=== PATIENT | female | born 1935 | race Two or more races ===

== ENCOUNTER 2021-09-03 20:44 | Emergency (ER) | payer OTHER ==
[~2021-09-03] VITALS: Ht 157.5 cm; Wt 59.0 kg
[2021-09-03] MEDS ORDERED: IOHEXOL 350 MG/ML 100ML IJ ONE (21:01)
[2021-09-03] MEDS ORDERED: HYDROcodone-ACET 5/325MG TAB PO ONE (22:30)
[2021-09-04 01:36] LABS: Albumin 3.3 g/dL (3.4-5.0); BUN/Creatinine Ratio 30.8; Calcium 8.3 mg/dL (8.5-10.1); Potassium 4.1 mmol/L (3.5-5.1)
[2021-09-04 01:39] LABS: Bilirubin, Total 0.2 mg/dL (0.2-1.0); Total Protein 6.3 g/dL (6.4-8.2)
[2021-09-04] MEDS ORDERED: LORazepam 0.5 MG TAB PO ONE (02:15)
[2021-09-04 07:00] VITALS: BP 149/62
== END 2021-09-04 08:58 | disposition home or self-care (01) ==
LOC: ER 20:44
DX: M06.9 Rheumatoid arthritis, unspecified (principal); Z96.642 Presence of left artificial hip joint
CPT/HCPCS: 36415; 72192; 73706; 80053; 93970; 99284; Q9967

== ENCOUNTER 2023-12-28 21:19 | Inpatient (IN) | payer OTHER ==
[~2023-12-28] VITALS: Ht 160 cm; Wt 56.4 kg
--- NOTE | 2023-12-28 21:42 | ED.PDOC ---
Musculoskeletal HPI Comments 88 year old female came to ER due to bilateral feet pain. Patient has history of arthritis and neuropathy. States for the past few days she has been having bilateral feet swelling and redness. Noted on and off fever. Patient denies ever being diagnosed with diabetes. Chief Complaint: Lower Extremity Time Seen by MD: 21:42 Reviewed Notes: Nurses Notes Allergies: Coded Allergies: Naproxen (Verified Allergy, Unknown, 09/03/21) Uncoded Allergies: PCN (Allergy, Unknown, 09/03/21) Information Source: Patient Mode of Arrival: Wheelchair Location: Bilateral Extremity Location: Foot Timing: Days Prehospital treatment: None Severity: Moderate Able to Move Extremity: Yes Bear Weight: Limited Pain: Moderate Hand Dominance: Right Mechanism: Spontaneous Circumstances: Spontaneous Onset of Symptoms: Spontaneous Symptoms: Swelling, Pain Associated signs and symptoms: Foot pain Past Medical History PAST MEDICAL HISTORY: Arthritis, Depression Past Medical History (Other): Neuropathy Surgical History: Denies all surgeries HARDWARE SALES ASSISTANT History: Denies all HARDWARE SALES ASSISTANT Hx Family History Family History: Reviewed,noncontributory to illness, No family hx of Cancer Social History Smoker: Non-Smoker Alcohol: Occasionally Drugs: Denies Drug Use Lives In: Home Constitutional: denies: chills, diaphoresis, fatigue, fever, malaise, sweats, weakness, others EENTM: denies: blurred vision, double vision, ear bleeding, ear discharge, ear drainage, ear pain, ear ringing, eye pain, eye redness, hearing loss, mouth pain, mouth swelling, nasal discharge, nose bleeding, nose congestion, nose pain, photophobia, tearing, throat pain, throat swelling, voice changes, others Respiratory: denies: cough, hemoptysis, orthopnea, SOB at rest, shortness of breath, SOB with excertion, stridor, wheezing, others Cardiovascular: denies: chest pain, dizzy spells, diaphoresis, Dyspnea on ex ertion, edema, irregular heart beat, left arm pain, lightheadedness, palpitations, PND, syncope, others Gastrointestinal: denies: abdomen distended, abdominal pain, blood streaked bowels, constipated, diarrhea, dysphagia, difficulty swallowing, hematemesis, melena, nausea, poor appetite, poor fluid intake, rectal bleeding, rectal pain, vomiting, others Genitourinary: denies: abnormal vagina bleeding, burning, dyspareunia, dysuria, flank pain, frequency, hematuria, incontinence, pain, , vagina discharge, urgency, others Neurological: denies: dizziness, fainting, headache, left sided numbness, left sided weakness, numbness, paresthesia, pre-existing deficit, right sided numbness, right sided weakness, seizure, speech problems, tingling, tremors, weakness, others Musculoskeletal: reports: others (bilateral redness/ swelling feet); denies: back pain, gout, joint pain, joint swelling, muscle pain, muscle stiffness, neck pain Integumetry: denies: bruises, change in color, change in hair/nails, dryness, l aceration, lesions, lumps, rash, wounds, others Allergic/Immunocompromised: denies: Difficulty Healing, Frequent Infections, Hives, Itching, others Hematologic/Lymphatic: denies: anemia, blood clots, easy bleeding, easy bruising, swollen glands, others Endocrine: denies: excessive hunger, excessive sweating, excessive thirst, excessive urination, flushing, intolerance to cold, intolerance to heat, unexplained weight gain, unexplained weight loss, others Psychiatric: denies: anxiety, bipolar disorder, depression, hopeless, panic disorder, schizophrenia, sleepless, suicidal, others Physical Exam General Appearance: No Apparent Distress, Normal HEENT: Normal ENT Inspection, Pharynx Normal, TMs Normal Neck: Full Range of Motion, Non-Tender, Normal, Normal Inspection Respiratory: Chest Non-Tender, Lungs Clear, No Accessory Muscle Use, No Respiratory Distress, Normal Breath Sounds Cardiovascular: No Edema, No JVD, No Murmur, No Gallop, Normal Peripheral Pulses, Regular Rate/Rhythm Breast Exam: Deferred Gastrointestinal: No Organomegaly, Non Tender, No Pulsatile Mass, Normal Bowel Sounds, Soft Genitalia: Deferred Pelvic: Deferred Rectal: Deferred Extremities: No calf tenderness, Normal capillary refill, Normal range of motion, Non-tender, No pedal edema, Swelling (Redness bilateral feet) Musculoskeletal : Apperance: Normal Neurologic: Alert, public health nurse II-XII nml as Tested, No Motor Deficits, Normal Affect, Normal Mood, No Sensory Deficits Cerebellar Function: Normal Reflexes: Normal Skin: Dry, Normal Color, Warm Lymphatic: No Adenopathy Was a procedure done? Was a procedure done?: No Differential Diagnosis EXT Differential Diagnosis: Cellulitis, CHF, Septic, Arthritis X-Ray, Labs, Meds, VS Vital Signs Date Time Temp Pulse Resp B/P (MAP) Pulse Ox O2 Delivery O2 Flow Rate FiO2 12/28/23 21:19 98.1 112 16 149/73 (98) 95 Lab Test 12/28/23 21:45 Range/Units White Blood Count 14.0 H 4.4-10.8 10^3/uL Red Blood Count 4.13 4.0-5.20 10^6/uL Hemoglobin 11.2 L 12.2-16.2 g/dL Hematocrit 34.4 L 36.0-46.0 % Mean Corpuscular Volume 83.2 80.0-100.0 fL Mean Corpuscular Hemoglobin 27.1 L 28.0-32.0 pg Mean Corpuscular Hemoglobin Concent 32.5 32.0-36.0 g/dL Red Cell Distribution Width 16.5 H 11.8-14.3 % Platelet Count 276 140-450 10^3/uL Mean Platelet Volume 9.7 6.9-10.8 fL Neutrophils (%) (Auto) 82.7 H 37.0-80.0 % Lymphocytes (%) (Auto) 10.5 10.0-50.0 % Monocytes (%) (Auto) 5.5 0.0-12.0 % Eosinophils (%) (Auto) 0.8 0.0-7.0 % Basophils (%) (Auto) 0.5 0.0-2.0 % Neutrophils # (Auto) 11.6 H 1.6-8.6 10 ^3/uL Lymphocytes # (Auto) 1.5 0.4-5.4 10 ^3/uL Monocytes # (Auto) 0.8 0-1.3 10 ^3/uL Eosinophils # (Auto) 0.1 0-0.8 10 ^3/uL Basophils # (Auto) 0.1 0-0.2 10 ^3/uL Nucleated Red Blood Cells 0.0 % Sodium Level 141 136-145 mmol/L Potassium Level 3.2 L 3.5-5.1 mmol/L Chloride Level 110 H 98-107 mmol/L Carbon Dioxide Level 23 20-31 mmol/L Anion Gap 8 5-15 Blood Urea Nitrogen 30 H 9-23 mg/dL Creatinine 0.99 0.550-1.02 mg/dL Glomerular Filtration Rate Calc 56 >90 mL/min BUN/Creatinine Ratio 30.3 H 10.0-20.0 Serum Glucose 90 74-106 mg/dL Calcium Level 9.2 8.7-10.4 mg/dL Troponin I High Sensitivity 8 </=34 ng/L B-Type Natriuretic Peptide 43.33 0-100 pg/mL Current Medications Medications (Trade) Dose Ordered Sig/Kirsten Route Start Time Stop Time Status Last Admin Lorazepam (Ativan Tablet) 0.5 mg ONCE ONCE PO 12/28/23 23:00 12/28/23 23:02 DC 12/28/23 23:24 Vancomycin HCl 200 ml @ 200 mls/hr ONCE ONCE IV 12/28/23 23:00 12/28/23 23:59 12/28/23 23:23 Time of 1ST Reevaluation: 21:38 Reevaluation 1ST: Unchanged Patient Education/Counseling: Diagnosis, Treatment Family Education/Counseling: No Family Present Departure 1 Departure Time of Disposition: 23:59 (Patient has signs of bilateral lower extremity cellulitis. We will treat with vancomycin. Given the extent of the cellulitis we will admit patient for further workup) Impression: Primary Impression: Lower extremity cellulitis Qualified Codes: L03.119 - Cellulitis of unspecified part of limb Additional Impression: Rheumatoid arthritis Qualified Codes: M06.9 - Rheumatoid arthritis, unspecified Disposition: ADMITTED INPATIENT Admit to: Med Surg Condition: Serious Critical Care Note Critical Care Time?: No Stability Stability form required: No Heart Score Heart Score: Heart Score Response (Comments) Value History N/A 0 EKG N/A 0 Age N/A 0 Risk Factors N/A 0 Troponin N/A 0 Total 0 I personally scribed for CARO LUEVANO MD ([email or web address]) on 12/28/23 at 21:42. Electronically submitted by Emir Regalado ([email or web address]). CARO LUEVANO MD Dec 28, 2023 21:42
[2023-12-28 21:53] LABS: Basophils # (auto) 0.1 10 ^3/uL (0-0.2); Basophils % (auto) 0.5 % (0.0-2.0); Eosinophils # (auto) 0.1 10 ^3/uL (0-0.8); Eosinophils % (auto) 0.8 % (0.0-7.0); Hematocrit 34.4 % (36.0-46.0); Hemoglobin 11.2 g/dL (12.2-16.2); Lymphocytes # (auto) 1.5 10 ^3/uL (0.4-5.4); Lymphocytes % (auto) 10.5 % (10.0-50.0); Mean Corpuscular Hemoglobin 27.1 pg (28.0-32.0); Mean Corpuscular Hgb Conc. 32.5 g/dL (32.0-36.0); Mean Corpuscular Volume 83.2 fL (80.0-100.0); Monocytes # (auto) 0.8 10 ^3/uL (0-1.3); Monocytes % (auto) 5.5 % (0.0-12.0); Neutrophils # (auto) 11.6 10 ^3/uL (1.6-8.6); Neutrophils % (auto) 82.7 % (37.0-80.0); Platelet Count (auto) 276 10^3/uL (140-450); Red Blood Cells 4.13 10^6/uL (4.0-5.20); Red Cell Distribution Width 16.5 % (11.8-14.3)
[2023-12-28 22:03] LABS: Chloride 110 mmol/L (98-107); Potassium 3.2 mmol/L (3.5-5.1); Sodium 141 mmol/L (136-145)
[2023-12-28 22:04] LABS: Anion Gap 8 (5-15); Carbon Dioxide 23 mmol/L (20-31)
[2023-12-28 22:05] LABS: Calcium 9.2 mg/dL (8.7-10.4)
[2023-12-28 22:09] LABS: Glucose 90 mg/dL (74-106)
--- NOTE | 2023-12-28 22:24 | DVH ---
XY CHEST PORTABLE, HISTORY: leg swelling COMPARISON: None None TECHNICAL DATA: 1 view of the chest was obtained. FINDINGS: Lines and tubes: None Cardiomediastinal silhouette: Prominent Pulmonary vasculature: Prominent Lung expansion: normal Lung airspace: Patchy right mid lung zone airspace opacity. Lung interstitium: normal Pleura: Biapical pleural scarring. Pneumothorax: no Bones: Unremarkable Other: no IMPRESSION: No acute intrathoracic abnormality. Mild cardiomegaly with pulmonary vascular congestion.
--- NOTE | 2023-12-28 22:24 | DVH ---
EXAMINATION: 3 views of the right foot 3 views of the left foot CLINICAL HISTORY: erythema, pain , and tenderness bilaterally COMPARISON: None Findings and impression: Evaluation significantly limited due to flexion in overlap of the digits. Bilateral hallux valgus and hammertoe deformities, more severe on the left. As visualized, no definite fractures are evident on the provided views. Mild generalized soft tissue swelling bilaterally, most apparent dorsally. Bilateral calcaneal spurring. If the patient has continued symptoms clinically suspicious for radiographically occult fracture, fol low-up radiographs could be obtained in 7-10 days time.
[2023-12-28 22:30] LABS: BUN/Creatinine Ratio 30.3 (10.0-20.0); Blood Urea Nitrogen 30 mg/dL (9-23)
[2023-12-28] MEDS: VANCOMYCIN 1GM/200ML PREMIX 200 ML IV ONE (23:23)
[2023-12-28] MEDS: LORazepam 0.5 MG TAB PO ONE (23:24)
[2023-12-28] MEDS ORDERED: ACETAMINOPHEN 325 MG TAB PO PRN (23:30)
[2023-12-28] MEDS ORDERED: ONDANSETRON HCL 4 MG/2 ML VIAL IV PRN (23:30)
[2023-12-28] MEDS ORDERED: VANCOMYCIN PER PHARMACY 0 MG IV SCH (23:30)
[2023-12-29] VITALS (13 sets, daily range): BP systolic 100–133; BP diastolic 40–80; PULSE 67–110; RESP 16–26; TEMP 98.1–98.7; O2SAT 90–97
--- NOTE | 2023-12-29 00:15 | DVHHP2 ---
Admitting Diagnosis: Bilateral feet swelling, pain, Leukocytosis History of Present Illness History Source: Patient Exam Limitations: No limitations HPI Mrs. Elif Monterroso is a 88 year old female with a history of arthritis and neuropathy. Patient presents with bilateral foot pain , which she has been unable to put any pressure and has been bedbound. Patient states for the past few days she has been having bilateral feet swelling and redness. Noted on and off fevers. Patient reports she had a ground fall x 1 week ago , reports left h ip pain. Left hip x ray with no fracture. Patient denies lower extremity numbness, nausea, vomiting, abdominal pain, diarrhea, constipation. Patient endorses dysuria without hematuria. Patient admitted for further evaluation. Past Medical History Cardiac: No pertinent Hx Pulmonary: No pertinent Hx Central Nervous System: No pertinent Hx GI: No pertinent Hx Hemotology/Oncology: No pertinent Hx Hepatobiliary: No pertinent Hx Psychiatric: Depression Musculoskeletal: Other (rheumatoid arthritis, neuropathy) Rheumotologic: No pertinent Hx Infectious Disease: No peritnent Hx ENT: No pertinent Hx Renal/: No pertinent Hx Endocrine: No pertinent Hx Dermatology: No pertinent Hx Smoker: No Hx (Negative) Alocohol: None Drugs: None Lives with: With family Domestic Violence: Neg Review of Systems Constitutional: No symptom reported Ears, Nose, & Throat: No symptom reported Eyes: No symptom reported Pulmonary/Respiratory: No symptom reported Cardiovascular: No symptom reported Gastrointestinal: No symptom reported Genitourinary: No symptom reported Musculoskeletal: Foot pain (bilateral foot pain with erythema, swelling. ), Joint pain (left hip pain) Skin: No symptom reported Psychiatric: No symptom reported Endocrine: No symptom reported Hemotologic/Lymphatic: No symptom reported H&P Exam Vital Signs Vital Signs Date Time Temp Pulse Resp B/P (MAP) Pulse Ox O2 Delivery O2 Flow Rate FiO2 12/28/23 23:30 99.1 118 34 157/69 (98) 98 99.1 General Appeara: Well developed, Well nourished, Normal Appearance Head Exam: Normal inspection Neck Exam: Normal inspection, Non-tender, Normal alignment Eye Exam: bilateral eye Normal inspection, bilateral eye PERRL, bilateral eye EOMI Ear Exam: bilateral ear Auricle normal Nasal Exam: Normal inspection Mouth: Normal Inspection Pulmonary/Respiratory: Normal inspection, Normal breath sounds, Chest non-tender, Lungs clear Cardiovascular/Chest: Normal inspection, Regular rate, Normal Rhythm Peripheral Pulses: 2+ dorsalis pedis (R), 2+ dorsalis pedis (L), 2+ Radial (R), 2+ Radial (L) Abdominal Exam: Normal bowel sounds, Soft, No tenderness Rectal Exam: Deferred Back Exam: Normal inspection Hand Exam: Deformity, Limited ROM, Pain Foot: bilateral foot swelling, bilateral foot other (erythema) AVIONICS TECHNICIAN Exam: Normal hearing, Normal speech, PERRL Neuro/Mental St: Alert, Oriented Appearance: Appropriate appearance, Appropriate insight Eye contact/ Speech: Cooperative, Good eye contact, Normal speech Thoughts/Psych: Normal thought pattern Skin Exam: Normal inspection, Warm/dry, Other (bilateral foot erythema) Labs/Xrays Labs Test 12/28/23 23:30 12/28/23 21:45 Range/Units White Blood Count 14.0 H 4.4-10.8 10^3/uL Red Blood Count 4.13 4.0-5.20 10^6/uL Hemoglobin 11.2 L 12.2-16.2 g/dL Hematocrit 34.4 L 36.0-46.0 % Mean Corpuscular Volume 83.2 80.0-100.0 fL Mean Corpuscular Hemoglobin 27.1 L 28.0-32.0 pg Mean Corpuscular Hemoglobin Concent 32.5 32.0-36.0 g/dL Red Cell Distribution Width 16.5 H 11.8-14.3 % Platelet Count 276 140-450 10^3/uL Mean Platelet Volume 9.7 6.9-10.8 fL Neutrophils (%) (Auto) 82.7 H 37.0-80.0 % Lymphocytes (%) (Auto) 10.5 10.0-50.0 % Monocytes (%) (Auto) 5.5 0.0-12.0 % Eosinophils (%) (Auto) 0.8 0.0-7.0 % Basophils (%) (Auto) 0.5 0.0-2.0 % Neutrophils # (Auto) 11.6 H 1.6-8.6 10 ^3/uL Lymphocytes # (Auto) 1.5 0.4-5.4 10 ^3/uL Monocytes # (Auto) 0.8 0-1.3 10 ^3/uL Eosinophils # (Auto) 0.1 0-0.8 10 ^3/uL Basophils # (Auto) 0.1 0-0.2 10 ^3/uL Nucleated Red Blood Cells 0.0 % Sodium Level 141 136-145 mmol/L Potassium Level 3.2 L 3.5-5.1 mmol/L Chloride Level 110 H 98-107 mmol/L Carbon Dioxide Level 23 20-31 mmol/L Anion Gap 8 5-15 Blood Urea Nitrogen 30 H 9-23 mg/dL Creatinine 0.99 0.550-1.02 mg/dL Glomerular Filtration Rate Calc 56 >90 mL/min BUN/Creatinine Ratio 30.3 H 10.0-20.0 Serum Glucose 90 74-106 mg/dL Calcium Level 9.2 8.7-10.4 mg/dL Troponin I High Sensitivity 8 </=34 ng/L B-Type Natriuretic Peptide 43.33 0-100 pg/mL Assessment/Plan Problem List: (1) Lower extremity cellulitis (2) Leukocytosis Plan 88 yo female with known history of arthritis, neuropathy, depression presents to the hospital with bilateral feet swelling with pain. Patient found to have 1. Cellulitis 2. Leukocytosis 3. Hypokalemia Admit Telemetry IV antibiotic Vancomycin Analgesics as needed for pain management Blood cultures x2 urine culture JOSE, CRP, CBC, Lactic level Discussed all above with patient who verbalizes agreement and understanding of care plan. All questions were answered. Discussed assessment and care plan with supervising MD. Plan discussed with: Patient, Other Code Visit Code Visit Total Time (mins): 45 Additional Comments Additional Comments Additional Comments 88 yo female with known history of generalized arthritis, peripheral neuropathy, depression presents to the hospital with bilateral feet swelling with pain. Patient found to have 1. Bilateral lower extremity cellulitis 2. Leukocytosis 3. Bilateral leg pain with a peripheral neuropathy 4. Hypokalemia -replace electrolytes, IV antibiotics, infectious disease consultation -pain meds as needed, resume home medications. JC MCKEON Dec 29, 2023 00:14 RAFAT PARNELL MD Dec 29, 2023 16:38
[2023-12-29] MEDS: SODIUM CHLORIDE 0.9% 1,000 ML IV ONE (00:29)
[2023-12-29] MEDS: POTASSIUM CHL 20MEQ/100ML 100 ML IV ONE (00:33)
[2023-12-29] MEDS: HYDROcodone-ACET 5/325MG TAB PO PRN ×2 (00:59→22:08)
--- NOTE | 2023-12-29 02:46 | DVH ---
CLINICAL INDICATION: RECENT FALL X1 WEEK AGO TECHNIQUE: XY L HIP COMPLETE XRAY Comparison: None FINDINGS/IMPRESSION: There is no evidence of acute fracture or dislocation. Left hip arthroplasty. The alignment is anatomical. There is no radiopaque foreign body.
[2023-12-29 04:32] LABS: Chloride 110 mmol/L (98-107); Potassium 3.3 mmol/L (3.5-5.1); Sodium 140 mmol/L (136-145)
[2023-12-29 04:33] LABS: Anion Gap 8 (5-15); Calcium 8.4 mg/dL (8.7-10.4); Carbon Dioxide 22 mmol/L (20-31)
[2023-12-29 04:38] LABS: BUN/Creatinine Ratio 27.4 (10.0-20.0); Blood Urea Nitrogen 26 mg/dL (9-23); Glucose 101 mg/dL (74-106)
[2023-12-29 04:50] LABS: Basophils # (auto) 0.1 10 ^3/uL (0-0.2); Basophils % (auto) 0.5 % (0.0-2.0); Eosinophils # (auto) 0.1 10 ^3/uL (0-0.8); Eosinophils % (auto) 0.8 % (0.0-7.0); Hematocrit 32.4 % (36.0-46.0); Hemoglobin 10.2 g/dL (12.2-16.2); Lymphocytes # (auto) 1.7 10 ^3/uL (0.4-5.4); Lymphocytes % (auto) 13.6 % (10.0-50.0); Mean Corpuscular Hemoglobin 26.1 pg (28.0-32.0); Mean Corpuscular Hgb Conc. 31.5 g/dL (32.0-36.0); Mean Corpuscular Volume 82.9 fL (80.0-100.0); Monocytes # (auto) 0.6 10 ^3/uL (0-1.3); Monocytes % (auto) 4.8 % (0.0-12.0); Neutrophils # (auto) 10.3 10 ^3/uL (1.6-8.6); Neutrophils % (auto) 80.3 % (37.0-80.0); Platelet Count (auto) 293 10^3/uL (140-450); Red Blood Cells 3.91 10^6/uL (4.0-5.20); Red Cell Distribution Width 16.5 % (11.8-14.3); White Blood Cell 12.8 10^3/uL (4.4-10.8)
[2023-12-29] MEDS: FAMOTIDINE 20 MG TAB PO SCH (10:49)
[2023-12-29] MEDS: ENOXAPARIN SOD 40 MG/0.4 ML SYRINGE SC SCH (10:50)
[2023-12-29 11:01] LABS: Urine Bacteria None Seen /hpf (None Seen)
[2023-12-29 11:07] LABS: Urine Blood Negative /uL (Negative); Urine Clarity Clear (Clear); Urine Color Yellow (Yellow); Urine Mucus FEW (None Seen); Urine Protein, UAD TRACE (Negative); Urine Specific Gravity 1.026 (1.001-1.035); Urine Urobilinogen 3 mg/dL (Negative); Urine WBC 30 /hpf (0 - 5)
[2023-12-29] MEDS: predniSONE 5 MG TAB PO ONE (15:45)
[2023-12-29] MEDS: cefTRIAXone 1GM/50ML D5W 50 ML IV ONE (15:45)
[2023-12-29] MEDS: VANCOMYCIN 500 MG in D5W 5% 100 ML IV SCH (17:57)
[2023-12-29] MEDS ORDERED: PRE5T PO (19:23)
[2023-12-29] MEDS ORDERED: OMEP20TA PO (19:24)
[2023-12-29] MEDS ORDERED: ERGO1CAP12 PO (19:36)
[2023-12-29] MEDS ORDERED: SULF800T23 PO (19:39)
[2023-12-30] VITALS (8 sets, daily range): BP systolic 125–153; BP diastolic 47–83; PULSE 80–105; RESP 16–17; TEMP 97.6–98.8; O2SAT 96–99
[2023-12-30 07:11] LABS: Basophils # (auto) 0.1 10 ^3/uL (0-0.2); Eosinophils # (auto) 0 10 ^3/uL (0-0.8); Hemoglobin 10.6 g/dL (12.2-16.2); Lymphocytes # (auto) 1.2 10 ^3/uL (0.4-5.4); Neutrophils # (auto) 8.3 10 ^3/uL (1.6-8.6); Nucleated Red Blood Cells % 0.1 %
[2023-12-30 07:19] LABS: Basophils % (auto) 0.6 % (0.0-2.0); Eosinophils % (auto) 0.2 % (0.0-7.0); Hematocrit 32.6 % (36.0-46.0); Lymphocytes % (auto) 12.4 % (10.0-50.0); Mean Corpuscular Hgb Conc. 32.5 g/dL (32.0-36.0); Mean Corpuscular Volume 83.2 fL (80.0-100.0); Monocytes # (auto) 0.4 10 ^3/uL (0-1.3); Neutrophils % (auto) 82.8 % (37.0-80.0); Platelet Count (auto) 272 10^3/uL (140-450); Red Blood Cells 3.92 10^6/uL (4.0-5.20); Red Cell Distribution Width 16.1 % (11.8-14.3); White Blood Cell 10.1 10^3/uL (4.4-10.8)
[2023-12-30] MEDS: cefTRIAXone 1GM/50ML D5W 50 ML IV SCH (11:53)
[2023-12-30] MEDS: predniSONE 5 MG TAB PO SCH (11:53)
--- NOTE | 2023-12-30 16:04 | DVHPN2 ---
Subjective Overnight events noted patient blood cultures came back positive for Gram- positive cocci in clusters. Patient was started on vancomycin per pharmacy. 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 Medications Current Medications Medications Dose Ordered Sig/Kirsten Route Start Time Stop Time Status Last Admin Dose Admin Ondansetron HCl 4 mg Q6HPRN PRN IV 12/28/23 23:30 Vancomycin HCl 0 ml @ 0 mls/hr UD IV 12/28/23 23:30 Acetaminophen 650 mg Q6HPRN PRN PO 12/28/23 23:30 Famotidine 20 mg DAILY PO 12/29/23 10:00 12/30/23 11:53 20 MG Enoxaparin Sodium 40 mg DAILY SC 12/29/23 10:00 12/30/23 11:54 40 MG Vancomycin HCl 500 mg/Dextrose 100 ml @ 200 mls/hr Q12H IV 12/29/23 17:00 12/30/23 06:08 200 MLS/HR Ceftriaxone Sodium 50 ml @ 100 mls/hr DAILY@09 IV 12/30/23 09:00 12/30/23 11:53 100 MLS/HR Prednisone 10 mg DAILY PO 12/30/23 10:00 12/30/23 11:53 10 MG Acetaminophen/ Hydrocodone Bitart 1 tab Q4HPRN PRN PO 12/29/23 14:30 12/29/23 22:08 1 TAB Lorazepam 0.5 mg Q12HP PRN PO 12/30/23 15:00 Laboratory Results Laboratory Tests 12/29/23 04:07 12/30/23 06:05 Urinalysis Test 12/29/23 10:45 Urine Color Yellow (Yellow) Urine Clarity Clear (Clear) Urine pH 6.0 (5.0-9.0) Urine Specific [place] 1.026 (1.001-1.035) Urine Protein Trace (Negative) H Urine Ketones Negative (Negative) Urine Blood Negative /uL (Negative) Urine Nitrite Negative (Negative) Urine Bilirubin Negative (Negative) Urine Urobilinogen 3 mg/dL (Negative) H Urine Leukocyte Esterase 3+ /uL (Negative) Urine RBC 4 /hpf (0 - 4) Urine WBC 30 /hpf (0 - 5) Urine Squamous Epithelial Cells Few /hpf (<5) Urine Bacteria None seen /hpf (None Seen) Urine Mucus Few (None Seen) Urine Glucose Normal mg/dL (Normal) Microbiology Microbiology Date/Time Source Procedure Growth Status 12/29/23 10:45 Voided Urine Urine Culture - Preliminary Resulted 12/28/23 23:30 Blood Blood Culture - Preliminary Resulted Assessment/Plan Assessment/Plan 88 yo female with known history of generalized arthritis, peripheral neuropathy, depression presents to the hospital with bilateral feet swelling with pain. Patient found to have 1. Bilateral lower extremity cellulitis 2. Leukocytosis 3. Bilateral leg pain with a peripheral neuropathy 4. Gram-positive bacteremia -repeat blood cultures x2, duty echo to rule out endocarditis Broad-spectrum IV antibiotics Infectious disease consultation. Plan discussed with: Patient My Orders Orders - RAFAT PARNELL MD Procedure Category Date Status Time Blood Culture JAVON 12/30/23 In Process 13:55 Echo 2d Mode Cardiac US 12/30/23 Logged DOP 13:55 Lorazepam Tablet PHA 12/30/23 In Process (Ativan Tablet) 15:00 Date of Service: Dec 30, 2023 Billing Provider: RAFAT PARNELL MD Common Visit Codes: NOT BILLABLE RAFAT PARNELL MD Dec 30, 2023 16:04
[2023-12-30] MEDS: LORazepam 0.5 MG TAB PO PRN (17:29)
[2023-12-30] MEDS: POTASSIUM CHL 20 Meq TABLET PO ONE (18:01)
[2023-12-31] VITALS (8 sets, daily range): BP systolic 95–160; BP diastolic 54–103; PULSE 71–89; RESP 16–17; TEMP 96.9–98.1; O2SAT 96–98
[2023-12-31 04:56] LABS: Basophils # (auto) 0 10 ^3/uL (0-0.2); Basophils % (auto) 0.3 % (0.0-2.0); Eosinophils # (auto) 0.1 10 ^3/uL (0-0.8); Hemoglobin 10.6 g/dL (12.2-16.2); Lymphocytes # (auto) 1.7 10 ^3/uL (0.4-5.4); Lymphocytes % (auto) 18.4 % (10.0-50.0); Mean Corpuscular Hemoglobin 27.2 pg (28.0-32.0); Mean Corpuscular Hgb Conc. 33.1 g/dL (32.0-36.0); Mean Corpuscular Volume 82.3 fL (80.0-100.0); Monocytes # (auto) 0.6 10 ^3/uL (0-1.3); Monocytes % (auto) 6.2 % (0.0-12.0); Neutrophils # (auto) 6.6 10 ^3/uL (1.6-8.6); Neutrophils % (auto) 74.1 % (37.0-80.0); Platelet Count (auto) 303 10^3/uL (140-450); Red Blood Cells 3.89 10^6/uL (4.0-5.20); Red Cell Distribution Width 15.9 % (11.8-14.3)
--- NOTE | 2023-12-31 10:02 | DVHSR ---
APPROVED REPORT EXAM: Two-dimensional and M-mode echocardiogram with Doppler and color Doppler. Blood Pressure: 126/56 mmHg INDICATION Bacteremia rule out infective endocarditis RISK FACTORS Height: 5'3", Weight: 128 DIMENSIONS LVDd3.6 (3.8-5.7cm)LA (2D)3.3 (1.9-4.0cm)Aortic Root3.2 (2.0-3.7cm) LVDs2.5 (2.5-4.0cm)LA (MM) (1.9-4.0cm)Aortic Cusp Exc1.7 (1.5-2.0cm) EF (%) 60.0 (55-70%)Rt. Atrium3.7 (1.9-4.0cm)Asc. Aorta cm IVSd0.9 (0.7-1.1cm)RV (D)3.8 (1.8-2.4cm) PWd1.1 (0.7-1.1cm) Mitral Valve MitralMitral Stenosis E wave0.75m/sMV Mean GR.mmHg A wave0.82m/sMV Peak GR.mmHg E/A ratio0.92D MVAcm2 DECEL [id number] 1/2 Timems Aortic Valve Aortic ValveAortic Stenosis V11.07m/Ady Mean GR.3mmHg V21.33m/Ady Peak GR.7mmHg LVOT Diameter2.0 (1.8-2.4cm)Doppler AVA2.53cm2 Pulmonic Valve V20.75m/s Tricuspid Valve TR Velocity2.92m/s [id number] Other Information Technically limited study due to body habitus and patient position. Conclusion Normal left ventricular size and dimension. Normal left ventricular systolic function with estimated ejection fraction of 55%. There is a grade1 diastolic dysfunction. Normal right ventricular size and dimension. Normal right ventricular systolic function. Mildly jason vated right ventricular systolic [id number] mm of mercury. Normal biatrial size and dimension. Normal aortic valve structure and function. Normal mitral valve structure and function Normal tricuspid valve structure and function. The pulmonary valve is grossly normal. . No pericardial effusion.
[2023-12-31] MEDS: PARoxetine 20 MG TAB PO SCH (10:03)
--- NOTE | 2023-12-31 16:31 | DVHPN2 ---
Subjective Patient was repeat blood cultures are negative. 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 Medications Current Medications Medications Dose Ordered Sig/Kirsten Route Start Time Stop Time Status Last Admin Dose Admin Ondansetron HCl 4 mg Q6HPRN PRN IV 12/28/23 23:30 Vancomycin HCl 0 ml @ 0 mls/hr UD IV 12/28/23 23:30 Acetaminophen 650 mg Q6HPRN PRN PO 12/28/23 23:30 Famotidine 20 mg DAILY PO 12/29/23 10:00 12/31/23 10:04 20 MG Enoxaparin Sodium 40 mg DAILY SC 12/29/23 10:00 12/31/23 10:03 40 MG Vancomycin HCl 500 mg/Dextrose 100 ml @ 200 mls/hr Q12H IV 12/29/23 17:00 12/31/23 04:51 200 MLS/HR Ceftriaxone Sodium 50 ml @ 100 mls/hr DAILY@09 IV 12/30/23 09:00 12/31/23 10:03 100 MLS/HR Prednisone 10 mg DAILY PO 12/30/23 10:00 12/31/23 10:04 10 MG Acetaminophen/ Hydrocodone Bitart 1 tab Q4HPRN PRN PO 12/29/23 14:30 12/31/23 11:15 1 TAB Lorazepam 0.5 mg Q12HP PRN PO 12/30/23 15:00 12/30/23 17:29 0.5 MG Paroxetine HCl 20 mg DAILY PO 12/31/23 10:00 12/31/23 10:03 20 MG Docusate Sodium 100 mg BID PO 12/31/23 22:00 Sennosides 17.2 mg HS PO 12/31/23 22:00 Polyethylene Glycol 17 gm BID PO 12/31/23 22:00 Laboratory Results Laboratory Tests 12/29/23 04:07 12/31/23 04:07 Urinalysis Test 12/29/23 10:45 Urine Color Yellow (Yellow) Urine Clarity Clear (Clear) Urine pH 6.0 (5.0-9.0) Urine Specific [place] 1.026 (1.001-1.035) Urine Protein Trace (Negative) H Urine Ketones Negative (Negative) Urine Blood Negative /uL (Negative) Urine Nitrite Negative (Negative) Urine Bilirubin Negative (Negative) Urine Urobilinogen 3 mg/dL (Negative) H Urine Leukocyte Esterase 3+ /uL (Negative) Urine RBC 4 /hpf (0 - 4) Urine WBC 30 /hpf (0 - 5) Urine Squamous Epithelial Cells Few /hpf (<5) Urine Bacteria None seen /hpf (None Seen) Urine Mucus Few (None Seen) Urine Glucose Normal mg/dL (Normal) Microbiology Microbiology Date/Time Source Procedure Growth Status 12/30/23 15:50 Blood Blood Culture - Preliminary NO GROWTH AFTER 24 HOURS OF INCUBATION. Resulted 12/29/23 10:45 Voided Urine Urine Culture - Final Complete Assessment/Plan Assessment/Plan 88 yo female with known history of generalized arthritis, peripheral neuropathy, depression presents to the hospital with bilateral feet swelling with pain. Patient found to have 1. Bilateral lower extremity cellulitis 2. Leukocytosis 3. Bilateral leg pain with a peripheral neuropathy 4. Gram-positive bacteremia -repeat blood cultures x2 are negative, echo shows no evidence of any endocarditis Broad-spectrum IV antibiotics Infectious disease consultation appreciated. Discharge plan. Plan discussed with: Patient My Orders Orders - RAFAT PARNELL MD Procedure Category Date Status Time Paroxetine Tablet PHA 12/31/23 In Process (Paxil Tablet) 10:00 * Infectious [place]- CONS 12/31/23 Transmitted [place] 15:09 Docusate Sodium PHA 12/31/23 In Process Capsule (Colace 22:00 Senna Pod Tablet PHA 12/31/23 In Process (Senokot Tablet) 22:00 Polyethylene Glycol PHA 12/31/23 In Process 17g Powder (Miralax 22:00 Date of Service: Dec 31, 2023 Billing Provider: RAFAT PARNELL MD Common Visit Codes: NOT BILLABLE RAFAT PARNELL MD Dec 31, 2023 16:31
[2023-12-31] MEDS: VANCOMYCIN 1GM/200ML PREMIX 0 ML IV ONE (21:10)
[2023-12-31] MEDS: DOCUSATE SOD 100 MG CAP PO SCH (21:43)
[2023-12-31] MEDS: SENNA 8.6 MG TAB PO SCH (21:43)
[2023-12-31] MEDS: POLYETHYLENE GLYCOL 17 GM PWDR PO SCH (21:44)
[2024-01-01] VITALS (8 sets, daily range): BP systolic 93–169; BP diastolic 49–72; PULSE 60–90; RESP 17–19; TEMP 97.5–98; O2SAT 95–100
--- NOTE | 2024-01-01 14:08 | DVHINCON2 ---
Date of service: Jan 01, 2024 Referring Physician Andres Son MD Reason for Consultation Bilateral feet swelling, pain, Leukocytosis History of Present Illness This is an 88 year old female with a history of arthritis and neuropathy. Patient presents with bilateral foot pain , which she has been unable to put any pressure and has been bedbound. Patient states for the past few days she has been having bilateral feet swelling and redness. She reported of fever which is on and off. Patient reports she had a ground fall x 1 week ago , reports left hip pain. Left hip x ray with no fracture.Patient endorses dysuria without hematuria. Past Medical History Rheumatoid arthritis , depression and neuropathy Past Surgical History None Family History: Diabetes mellitus G8 MOTHER G8 FATHER Family History Lives with: With family Social History Smoker: No Hx (Negative) Alocohol: None Drugs: None Allergies: Coded Allergies: Naproxen (Verified Allergy, Unknown, 09/03/21) Penicillins (Verified Allergy, Unknown, 12/29/23) Home Meds Active Scripts Cefdinir (Cefdinir) 300 Mg Cap, 1 CAP PO BID for 4 Days, #8 CAP Prov:RAFAT PARNELL MD 01/01/24 Reported Medications Ergocalciferol (Vitamin D) 50,000 Unit Cap, CAP PO 12/29/23 Omeprazole (Gnp Omeprazole) 20 Mg Tab, 20 MG PO DAILY, TAB 12/29/23 Prednisone (Prednisone) 5 Mg Tab, 5 MG PO BID, TAB 12/29/23 Current Medications Current Medications Medications (Trade) Dose Ordered Sig/Kirsten Route PRN Reason Start Time Stop Time Status Last Admin Docusate Sodium (Colace Capsule) 100 mg BID PO 12/31/23 22:00 01/01/24 09:36 Sennosides (Senokot Tablet) 17.2 mg HS PO 12/31/23 22:00 12/31/23 21:43 Polyethylene Glycol (Miralax 17GM Powder) 17 gm BID PO 12/31/23 22:00 01/01/24 09:36 Review of Systems Constitutional: No symptom reported Ears, Nose, & Throat: No symptom reported Eyes: No symptom reported Pulmonary/Respiratory: No symptom reported Cardiovascular: No symptom reported Gastrointestinal: No symptom reported Genitourinary: No symptom reported Musculoskeletal: Foot pain (bilateral foot pain with erythema, swelling. ), Joint pain (left hip pain) Skin: No symptom reported Psychiatric: No symptom reported Endocrine: No symptom reported Hemotologic/Lymphatic: No symptom reported Vital Signs Vital Signs Date Time Temp Pulse Resp B/P (MAP) Pulse Ox O2 Delivery O2 Flow Rate FiO2 01/01/24 08:46 97.7 80 18 141/55 (83) 96 97.7 01/01/24 07:50 Room Air* 0 21 Physical Exam General Appeara: Well developed, Well nourished, Normal Appearance Head Exam: Normal inspection Neck Exam: Normal inspection, Non-tender, Normal alignment Eye Exam: bilateral eye Normal inspection, bilateral eye PERRL, bilateral eye EOMI Ear Exam: bilateral ear Auricle normal Nasal Exam: Normal inspection Mouth: Normal Inspection Pulmonary/Respiratory: Normal inspection, Normal breath sounds, Chest non- tender, Lungs clear Cardiovascular/Chest: Normal inspection, Regular rate, Normal Rhythm Peripheral Pulses: 2+ dorsalis pedis (R), 2+ dorsalis pedis (L), 2+ Radial (R), 2+ Radial (L) Abdominal Exam: Normal bowel sounds, Soft, No tenderness Rectal Exam: Deferred Back Exam: Normal inspection Hand Exam: Deformity, Limited ROM, Pain Foot: bilateral foot swelling, bilateral foot other (erythema) STORE COORDINATOR Exam: Normal hearing, Normal speech, PERRL Neuro/Mental St: Alert, Oriented Appearance: Appropriate appearance, Appropriate insight Eye contact/ Speech: Cooperative, Good eye contact, Normal speech Thoughts/Psych: Normal thought pattern Skin Exam: Normal inspection, Warm/dry, Other (bilateral foot erythema) Labs/Diagnostic Data Labs Test 12/31/23 04:07 12/29/23 10:45 12/29/23 04:07 12/28/23 23:30 Range/Units White Blood Count 9.0 4.4-10.8 10^3/uL Red Blood Count 3.89 L 4.0-5.20 10^6/uL Hemoglobin 10.6 L 12.2-16.2 g/dL Hematocrit 32.0 L 36.0-46.0 % Mean Corpuscular Volume 82.3 80.0-100.0 fL Mean Corpuscular Hemoglobin 27.2 L 28.0-32.0 pg Mean Corpuscular Hemoglobin Concent 33.1 32.0-36.0 g/dL Red Cell Distribution Width 15.9 H 11.8-14.3 % Platelet Count 303 140-450 10^3/uL Mean Platelet Volume 9.8 6.9-10.8 fL Neutrophils (%) (Auto) 74.1 37.0-80.0 % Lymphocytes (%) (Auto) 18.4 10.0-50.0 % Monocytes (%) (Auto) 6.2 0.0-12.0 % Eosinophils (%) (Auto) 1.0 0.0-7.0 % Basophils (%) (Auto) 0.3 0.0-2.0 % Neutrophils # (Auto) 6.6 1.6-8.6 10 ^3/uL Lymphocytes # (Auto) 1.7 0.4-5.4 10 ^3/uL Monocytes # (Auto) 0.6 0-1.3 10 ^3/uL Eosinophils # (Auto) 0.1 0-0.8 10 ^3/uL Basophils # (Auto) 0 0-0.2 10 ^3/uL Nucleated Red Blood Cells 0.0 % Creatinine 0.84 0.550-1.02 mg/dL Glomerular Filtration Rate Calc 68 >90 mL/min Vancomycin Level Trough 12.0 H 5-10 ug/mL Urine Color Yellow Yellow Urine Clarity Clear Clear Urine pH 6.0 5.0-9.0 Urine Specific [place] 1.026 1.001-1.035 Urine Protein Trace H Negative Urine Ketones Negative Negative Urine Blood Negative Negative /uL Urine Nitrite Negative Negative Urine Bilirubin Negative Negative Urine Urobilinogen 3 H Negative mg/dL Urine Leukocyte Esterase 3+ Negative /uL Urine RBC 4 0 - 4 /hpf Urine WBC 30 0 - 5 /hpf Urine Squamous Epithelial Cells Few <5 /hpf Urine Bacteria None seen None Seen /hpf Urine Mucus Few None Seen Urine Glucose Normal Normal mg/dL Sodium Level 140 136-145 mmol/L Potassium Level 3.3 L 3.5-5.1 mmol/L Chloride Level 110 H 98-107 mmol/L Carbon Dioxide Level 22 20-31 mmol/L Anion Gap 8 5-15 Blood Urea Nitrogen 26 H 9-23 mg/dL BUN/Creatinine Ratio 27.4 H 10.0-20.0 Serum Glucose 101 74-106 mg/dL Calcium Level 8.4 L 8.7-10.4 mg/dL C-Reactive Protein High Sensitivity 6.99 H <1.0 mg/dL Lactic Acid Level 1.7 0.4-2.0 mmol/L Test 12/28/23 21:45 Range/Units Troponin I High Sensitivity 8 </=34 ng/L B-Type Natriuretic Peptide 43.33 0-100 pg/mL Microbiology Date/Time Source Procedure Growth Status 12/30/23 15:50 Blood Blood Culture - Preliminary NO GROWTH AFTER 24 HOURS OF INCUBATION. Resulted 12/29/23 10:45 Voided Urine Urine Culture - Final Complete Assessment 88 yo female with known history of arthritis, neuropathy, depression presents to the hospital with bilateral feet swelling with pain. Patient found to have STaphylococcus bacteremia 1. b/l lower extremity Cellulitis vs chronic venous stasis 2. Leukocytosis resolved recommendations legs most likely chronic stasis. elevate leg x ray foot, no acute fracture has neuropathy blood cx is likely contamination ok to taper to oral antibiotcs, due to penicillin allergy; she is tolerating ceftriaxone, can step down to cefdinir dc vancomycin thank you for consult plan discussed with dr Parnell Plan discussed with: Patient, Other SARAH CARRANZA MD Jan 01, 2024 14:08
[2024-01-01] MEDS ORDERED: CEFD300C2 PO (17:23)
[2024-01-01] MEDS: LACTULOSE 20Gm/30ML SOLN PO PRN (18:54)
--- NOTE | 2024-01-01 19:24 | DVHDS2 ---
Discharge Summary Date of Admission Dec 28, 2023 at 23:18 Date of Discharge: Jan 01, 2024 Labs/Diagnostic Data: Laboratory Results Test 01/01/24 17:02 12/31/23 04:07 12/29/23 10:45 12/29/23 04:07 Vancomycin Level Trough 19.8 ug/mL (5-10) White Blood Count 9.0 10^3/uL (4.4-10.8) Red Blood Count 3.89 10^6/uL (4.0-5.20) Hemoglobin 10.6 g/dL (12.2-16.2) Hematocrit 32.0 % (36.0-46.0) Mean Corpuscular Volume 82.3 fL (80.0-100.0) Mean Corpuscular Hemoglobin 27.2 pg (28.0-32.0) Mean Corpuscular Hemoglobin Concent 33.1 g/dL (32.0-36.0) Red Cell Distribution Width 15.9 % (11.8-14.3) Platelet Count 303 10^3/uL (140-450) Mean Platelet Volume 9.8 fL (6.9-10.8) Neutrophils (%) (Auto) 74.1 % (37.0-80.0) Lymphocytes (%) (Auto) 18.4 % (10.0-50.0) Monocytes (%) (Auto) 6.2 % (0.0-12.0) Eosinophils (%) (Auto) 1.0 % (0.0-7.0) Basophils (%) (Auto) 0.3 % (0.0-2.0) Neutrophils # (Auto) 6.6 10 ^3/uL (1.6-8.6) Lymphocytes # (Auto) 1.7 10 ^3/uL (0.4-5.4) Monocytes # (Auto) 0.6 10 ^3/uL (0-1.3) Eosinophils # (Auto) 0.1 10 ^3/uL (0-0.8) Basophils # (Auto) 0 10 ^3/uL (0-0.2) Nucleated Red Blood Cells 0.0 % Creatinine 0.84 mg/dL (0.550-1.02) Glomerular Filtration Rate Calc 68 mL/min (>90) Urine Color Yellow (Yellow) Urine Clarity Clear (Clear) Urine pH 6.0 (5.0-9.0) Urine Specific [place] 1.026 (1.001-1.035) Urine Protein Trace (Negative) Urine Ketones Negative (Negative) Urine Blood Negative /uL (Negative) Urine Nitrite Negative (Negative) Urine Bilirubin Negative (Negative) Urine Urobilinogen 3 mg/dL (Negative) Urine Leukocyte Esterase 3+ /uL (Negative) Urine RBC 4 /hpf (0 - 4) Urine WBC 30 /hpf (0 - 5) Urine Squamous Epithelial Cells Few /hpf (<5) Urine Bacteria None seen /hpf (None Seen) Urine Mucus Few (None Seen) Urine Glucose Normal mg/dL (Normal) Sodium Level 140 mmol/L (136-145) Potassium Level 3.3 mmol/L (3.5-5.1) Chloride Level 110 mmol/L (98-107) Carbon Dioxide Level 22 mmol/L (20-31) Anion Gap 8 (5-15) Blood Urea Nitrogen 26 mg/dL (9-23) BUN/Creatinine Ratio 27.4 (10.0-20.0) Serum Glucose 101 mg/dL (74-106) Calcium Level 8.4 mg/dL (8.7-10.4) C-Reactive Protein High Sensitivity 6.99 mg/dL (<1.0) Anti-Nuclear Antibody Screen Negative (Negative) Test 12/28/23 23:30 12/28/23 21:45 Lactic Acid Level 1.7 mmol/L (0.4-2.0) Troponin I High Sensitivity 8 ng/L (</=34) B-Type Natriuretic Peptide 43.33 pg/mL (0-100) Other Laboratory Tests 12/31/23 04:07 12/29/23 04:07 Brief Hx & Hospital Course: 88 yo female with known history of generalized arthritis, peripheral neuropathy, depression presents to the hospital with bilateral feet swelling with pain. Patient found to have Gram-positive bacteremia, patient was started on IV antibiotics, infectious disease was consulted has been. Patient hospital course was uneventful. Her repeat blood cultures are negative and currently she is stable to be discharged on p.o. antibiotics as per Infectious Disease recommendations. Patient was placed on remained stable physical examination no change. Condition at Discharge: Stable Final Diagnosis/Problems List 1. Bilateral lower extremity cellulitis 2. Leukocytosis 3. Bilateral leg pain with a peripheral neuropathy 4. Gram-positive bacteremia Discharge Disposition: Home with Health Services SNF Discharge Will this Physician continue t: No Discharge Instruct/Medications Diet: Cardiac 2g Na,low cholest Activity: No Restrictions, As Tolerated Follow Up/Referral: With the PCP in 1-2 weeks Follow up with the Infectious Disease Dr. West in 1-2 weeks Medications: Cefdinir 300 mg twice a day for four more days Discharge Statement: "Patient was advised to return to the ER or call 911 if any headaches, dizziness, shortness of breath, chest pain, abdominal pain, bleeding, fevers, or worsening of medical condition. Patient was counseled about treatment plan, medications, possible side effects, patientverbalized understanding. All questions were answered to the best of my ability. This discharge took greater then 30 minutes in planning, reviewing documentation, counseling the patient, and discussing with other team members." ASSESSMENT ASSESSMENT Assessment 88 yo female with known history of generalized arthritis, peripheral neuropathy, depression presents to the hospital with bilateral feet swelling with pain. Patient found to have 1. Bilateral lower extremity cellulitis 2. Leukocytosis 3. Bilateral leg pain with a peripheral neuropathy 4. Gram-positive bacteremia Date of Service: Jan 01, 2024 Billing Provider: RAFAT PARNELL MD Common Visit Codes: NOT BILLABLE RAFAT PARNELL MD Jan 01, 2024 19:24
[2024-01-01] MEDS ORDERED: VANCOMYCIN 750mg/150ml 150 ML IV SCH (20:00)
[2024-01-02] MEDS: VANCOMYCIN 500 MG in D5W 5% 100 ML IV SCH (00:13)
[2024-01-02 01:00] VITALS: BP 133/52; PULSE 82; RESP 18; TEMP 82; O2SAT 96
[2024-01-02 05:00] VITALS: BP 136/73; PULSE 97; RESP 20; TEMP 97.9; O2SAT 94
[2024-01-02 08:00] VITALS: PULSE 73; PULSE 77; RESP 20; O2SAT 96
[2024-01-02 08:43] VITALS: BP 156/60; PULSE 77; RESP 20; TEMP 98.4; O2SAT 96
[2024-01-02 12:42] VITALS: BP 103/61; PULSE 89; RESP 17; TEMP 97.6; O2SAT 97
[2024-01-02 13:13] VITALS: BP 106/72; PULSE 67; RESP 17; TEMP 97.5; O2SAT 99
== END 2024-01-02 15:00 | disposition home health service (06) | DRG 872 ==
LOC: ER 21:19 → TELE 23:18 → TELE-WESTW 12-29 02:40
PROVIDERS: ADMIT Nurse Practitioner Family; ATTEND Internal Medicine
DX: A41.9 Sepsis, unspecified organism (principal); L03.115 Cellulitis of right lower limb; L03.116 Cellulitis of left lower limb; E87.6 Hypokalemia; G62.9 Polyneuropathy, unspecified; F17.200 Nicotine dependence, unspecified, uncomplicated; M13.0 Polyarthritis, unspecified; M06.9 Rheumatoid arthritis, unspecified; Z74.01 Bed confinement status; F32.A Depression, unspecified; B96.89 Other specified bacterial agents as the cause of diseases classified elsewhere; Z83.3 Family history of diabetes mellitus; Z88.8 Allergy status to other drugs, medicaments and biological substances; Z79.899 Other long term (current) drug therapy
CPT/HCPCS: 36415; 71045; 73502; 73630; 80048; 80202; 81001; 82565; 83605; 83880; 84484; 85025; 86038; 86141; 87040; 87077; 87081; 87086; 87186; 93306; 96365; 97110; 97116; 97163; 97530; G0378; J3480; J7060